=== PATIENT | female | born 1950 | race Caucasian/White ===

== ENCOUNTER → 2016-04-24 | Outpatient (CLI) | payer OTHER ==
[~2016-04-24] MED LIST: ENDOCET1 TAB PO; HYDROMORPHONE HC2 MG PO; LORAZEPAM0.5 MG PO; SPIRIVA18 MCG IN; SPIRIVA18 MCG INH; SYMBICORT1 AE1 IN; WARFARIN SODIUM5 MG PO; XARELTO10 MG PO
--- NOTE | 2016-04-24 13:20 | DIAGNOSTIC IMAGING REPORT ---
PROCEDURE: CT HEAD WITHOUT CONTRAST INDICATION: ACUTE RECURRENT SINUSITIS, headaches TECHNIQUE: Axial CT images were acquired through the head. Coronal and sagittal reformations were created. COMPARISON: None. FINDINGS: No intracranial hemorrhage or extraaxial fluid collections. Ventricles are normal in size, shape and position. There is no mass, mass effect or midline shift. The mahmood-white matter differentiation is normal. There is no edema. Small areas of scattered patchy hypodensity in the periventricular white matter, left greater than right. The right mastoid cavity is diminutive and mainly fluid filled with trabecular pattern normally preserved. There is dependent fluid partially opacified left mastoid cavity. Fluid present in both middle ear spaces. Fluid/mucus dependently in the sphenoid sinuses, partial opacification of mainly left-sided ethmoid air cells, and mucosal thickening dependently in the left frontal sinus. Dependent fluid and mucus in the left maxillary sinus. Small mucous retention cyst or polyp at the base of the right maxillary sinus. There is extensive soft tissue hypertrophy of the adenoid pad/posterior nasopharyngeal region as well as a permeative appearance and cortical destruction involving the clivus. The rest of the osseous structures appear normal. Extracranial soft tissues are normal without adenopathy visible. IMPRESSION: 1. No CT evidence of acute intracranial process. 2. Minor, nonspecific deep white matter changes, statistically likely microvascular/age-related. 3. Abnormal soft tissue mass in the posterior nasopharynx as well as adjacent osseous destructive process. This mass is likely obstructive to eustachian tubes bilaterally resulting in bilateral mastoid opacification. 3. Partially occlusive sinus disease involving the left frontal, bilateral sphenoid, maxillary, and mainly left-sided ethmoid air cells. 4. Otolaryngology consult is recommended for posterior nasopharyngeal mass. Further imaging with contrast enhanced MRI recommended. All CT scans at this facility use dose modulation, iterative reconstruction, and/or weight-based dosing when appropriate to reduce radiation dose to as low as reasonably achievable.
== END ==
LOC: CT SRH 12:29
DX: J34.89 Other specified disorders of nose and nasal sinuses (principal)

== ENCOUNTER 2016-05-01 18:58 | Observation (INO) | payer OTHER ==
[~2016-05-01] VITALS: Ht 157.5 cm; Wt 70.2 kg
--- NOTE | 2016-05-01 21:22 | DIAGNOSTIC IMAGING REPORT ---
PROCEDURE: CTA THORAX WITH CONTRAST INDICATION: Shortness of breath TECHNIQUE: 80 ml of Isovue 370 was injected intravenously and axial images were obtained of the entire thorax with 3D sagittal and coronal MIP reconstructions. COMPARISON: CT chest 08/15/2014 FINDINGS: Small pulmonary emboli to the branches of the both lower lobes. Mild emphysema. Mild right upper lobe and bibasilar atelectasis. Previously noted pulmonary nodules have resolved. Calcified left lower lobe granuloma. No adenopathy or effusion. 1.2 cm right thyroid lobe nodule. No aortic dissection or aneurysm. Heart size is normal. Hiatal hernia. Mild degenerative changes of the spine. IMPRESSION: 1. Small pulmonary emboli to peripheral branches of both lower lobes 2. Emphysema 3. Old granulomatous disease 4. Results discussed with Clari Dumont
--- NOTE | 2016-05-01 21:36 | ED CLINICAL REPORT ---
Clinical Report - Physicians/Mid Levels [facility] [address] [place] [address] 05/01/2016 18:58 Patient: CHERYL TENORIO Time Seen: 1929; initial patient contact, initial documentation, patient care assumed. Arrived- By private vehicle. Historian- patient and daughter. HISTORY OF PRESENT ILLNESS Chief Complaint: DYSPNEA and HISTORY OF CHRONIC OBSTRUCTIVE PULMONARY DISEASE. This started about 6 - 7 months ago and is still present and worsening. (worse 1 weeks ago). The dyspnea is described as moderate and is worsened by walking and exertion. The patient has had a cough, wheezing, dyspnea on exertion and dizziness. No sputum production, fever, sweating episodes or chest pain or discomfort. No calf pain, foot swelling, anxiety, tingling or numbness. No palpitations. Similar symptoms previously: Chronically. ( has had copd for years, back in august, started feeling bad, ct chest done and was told she had 3 nodules in her lungs at that time, but nothing was done about it, states she went to her pcp, dominik several times, and was told different, things, she had flu, she had pneumonia, but wasn't feeling better, about a week ago, head ct done here, was told there was a mass in her nose/sinus area, referred to oncologist, went there today, biopsy done in nose, and ct of chest done, on way home from office, got phone call to go to nearest er for possible pe). Recent medical care: The patient was seen recently in the office. ( as above). REVIEW OF SYSTEMS The patient has had muscle aches. No sore throat, nasal discharge or sinus drainage. All systems otherwise negative, except as recorded above. PAST HISTORY See nurses notes. PROBLEMS: COPD - Chronic Obstructive Pulmonary Disease. Cancer. --19:18 Mehul Wheeler R.N. SOCIAL HISTORY Former smoker. No alcohol use or drug use. No recent travel. Is a local resident. FAMILY HISTORY Negative. ADDITIONAL NOTES The nursing notes have been reviewed with agreement regarding the chief complaint, HPI, ROS, PMH and patient medications and allergies. PHYSICAL EXAM Vital Signs: 05/01/2016 19:08 BP: 150/97. HR: 108. RR: 20. O2 saturation: 97%. Temp: 97.5 F. Have been reviewed as abnormal and appear to be correct. Hypertensive. Tachycardic. Respiratory rate normal. Temperature normal. Oxygen saturation normal. Appearance: Alert. No acute distress. Eyes: Pupils equal, round and reactive to light. Eyes normal inspection. ENT: (dried nasal blood in nares). Neck: Normal inspection. No jugular venous distention. Neck supple. CVS: Normal heart rate and rhythm. Heart sounds normal. Pulses normal. Respiratory: No respiratory distress. Breath sounds normal. Back: Normal inspection. Skin: Skin warm and dry. Normal skin color. No rash. Normal skin turgor. Extremities: Extremities exhibit normal ROM. No lower extremity edema. Neuro: Oriented X 3. No motor deficit. No sensory deficit. LABS, X-RAYS, AND EKG Chest CT: . (IMPRESSION: 1. Small pulmonary emboli to peripheral branches of both lower lobes 2. Emphysema 3. Old granulomatous disease 4. Results discussed with Clari Dumont Electronically Final signed by:Noel Mack MD 05/01/2016 9:21:42 PM). The study was interpreted by the radiologist and discussed with the radiologist. Laboratory Tests: CBC w Diff: (ZION: 05/01/2016 20:01) ( MsgRcvd 05/01/2016 20:12) Final results Test Result Flag Units (Reference) WHITE BLOOD COUNT 10.1 K/uL (4.5-11.5) RED BLOOD COUNT 4.88 M/uL (4.00-5.20) HEMOGLOBIN 14.9 gm/dL (12.0-16.0) HEMATOCRIT 45.2 % (36.0-46.0) MEAN CELL VOLUME 93 fL (80-100) MEAN CORPUSCULAR HGB 31 pg (26-34) MEAN CORPUSCULAR HGB CONC 33 g/dL (31-37) RED CELL DISTRIBUTION WIDTH 13.4 % (11.6-14.8) PLATELET COUNT 406 H K/uL (150-400) NEUTROPHIL % 72.5 % (50-75) LYMPH % 18.2 L % (25-40) MONO % 6.3 % (3-14) EOSINOPHIL % 2.6 % (0-4) BASOPHIL % 0.4 % (0-2) [id number]: (ZION: 05/01/2016 20:01) ( MsgRcvd 05/01/2016 20:42) Final results Test Result Flag Units (Reference) D-DIMER QUANTITATIVE 0.96 H ug/mLFEU (0.27-0.52) The primary value of this quantitative assay relates toits negative predictive value (i.e. exclusion) of pulmonaryembolism/deep vein thrombosis/DIC.Elevated levels of d-dimer may also occur with:, age, cancer, inflammation, liver disease,post-op, infection, hematoma, coronary disease, peripheralarteriopathy, bleeding disorders and thrombolytic treatment.Results should be correlated with other clinical andradiological data.Testing Methodology: Latex Immunoassay CMP: (ZION: 05/01/2016 20:01) ( MsgRcvd 05/01/2016 20:29) Final results Test Result Flag Units (Reference) GLUCOSE 143 H mg/dL (70-110) BUN 9 mg/dL (7-18) CREATININE 0.8 mg/dL (0.6-1.3) Estimated GFR >60 mL/min Estimated GFR- >60 mL/min Note: Persistent reduction over 3 months in eGFR<60 mL/min/1.73 m2 defines CKD. Patients with eGFR values>=60 mL/min/1.73 m2 may also have CKD if evidence ofpersistent proteinuria. Additional information may be foundat www.kidney.org. SODIUM 137 mmol/L (136-145) POTASSIUM 3.9 mmol/L (3.5-5.1) CHLORIDE 98 mmol/L (98-107) CARBON DIOXIDE 29 mmol/L (21-32) CALCIUM 10.1 mg/dL (8.5-10.1) TOTAL PROTEIN 7.5 g/dL (6.4-8.2) ALBUMIN 3.7 g/dL (3.3-5.0) BILIRUBIN, TOTAL 0.5 mg/dL (0.0-1.0) ALKALINE PHOSPHATASE 100 U/L (46-116) AST (SGOT) 13 L U/L (15-37) ALT (SGPT) 19 U/L (12-78) . PROGRESS AND PROCEDURES Course of Care: ct results from reviewed, and discussion with pt re tx plan and concerns of metastatic ca vs pe radiology questioning reason for cta, since pt just had one done 20:30 05/01/16. now Dr. Pablo calling in reference to another ct chest being done and why, pt case discussed with him and ct report read to him, agreed to cta chest. Discussed case with on-call health care provider, (call placed [phone]). Reviewed test results. Agreed upon treatment plan and decision to admit. Health care provider will see patient in hospital. Patient counseled in person regarding the patient's stable condition, test results and diagnosis. 2124. Differential Diagnosis: Other possible considerations: pe, mets ca, copd exac, pneumonia. Above considerations are based on history, physical exam, laboratory data and other information. Differential diagnosis was discussed with patient and patient's family. Disposition: Admitted to Acute Care. 21:34. CLINICAL IMPRESSION Acute pulmonary embolism. No acute cor pulmonale, hypotension or respiratory failure. (Electronically signed by Clari Dumont A.R.N.P. 05/01/2016 22:29)
--- NOTE | 2016-05-01 21:36 | ED ORDER SUMMARY ---
..... Patient: CHERYL TENORIO OrderSheet [facility] VisitID: [id number] [address] [place] [address] 65y, F Registration Date/Time: 05/01/2016 ORDER SHEET Weight: 70.3 kg (stated) Allergies: Biaxin GENERAL ORDERS: CTA Thorax w Cont (No) (pending) Urgent (20:07 05/01/2016 HBivens A.R.N.P.) (Ack 20:09 AMcQuoid ER Tech1) (20:50 TLewis R.N.) CBC w Diff Urgent (20:07 05/01/2016 HBivens A.R.N.P.) (Ack 20:09 AMcQuoid ER Tech1) (20:11 AMcQuoid ER Tech1) CMP Urgent (20:07 05/01/2016 HBivens A.R.N.P.) (Ack 20:09 AMcQuoid ER Tech1) (20:11 AMcQuoid ER Tech1) D-Dimer Urgent (20:27 05/01/2016 HBivens A.R.N.P.) (20:35 AMcQuoid ER Tech1) PT with INR Urgent (21:29 05/01/2016 HBivens A.R.N.P.) (Ack 21:30 AMcQuoid ER Tech1) (21:36 TLewis R.N.) PTT Urgent (21:29 05/01/2016 HBivens A.R.N.P.) (Ack 21:30 AMcQuoid ER Tech1) (21:36 TLewis R.N.) MEDICATION ORDERS: Lovenox Subcut 70mg (HIGH ALERT MEDICATION, NOW) (21:35 05/01/2016 HBivens A.R.N.P.) (21:44 TLewis R.N.) IV FLUIDS: IV Saline Lock (20:07 05/01/2016 HBivens A.R.N.P.) (20:19 TLewis R.N.) ORDER SHEET NOTES: [Electronically signed by Mehul Wheeler R.N. (22:17 05/01/2016)] [Electronically signed by Clari DumontR.N.P. (22:29 05/01/2016)] [Electronically locked/signed by Mehul Wheeler R.N. (22:17 05/01/2016)]
--- NOTE | 2016-05-01 21:36 | ED NURSING NOTES ---
Clinical Report - Nurses [facility] [address] [place] [address] 05/01/2016 18:58 Patient: CHERYL TENORIO TRIAGE Triage time 19:08. Acuity: LEVEL 3. --19:19 Mehul Wheeler R.N. 19:08 05/01/16. BP: 150/97. HR: 108. RR: 20. O2 saturation: 97%. Temp: 97.5 F. Pain level now 5/10. --19:19 Mehul Wheeler R.N. Chief Complaint: (sob). --22:17 Mehul Wheeler R.N. Weight: 70.3 kg stated. Height/Length: 62 inches Per Patient. BMI: 28.4. --19:18 Mehul Wheeler R.N. Medications Spiriva HandiHaler Inhalation. --19:16 Mehul Wheeler R.N. LORazepam Oral 0.5 mg, PRN. --19:16 Mehul Wheeler R.N. Oxycodone-Acetaminophen Oral 5/325 mg, at bedtime. --19:17 Mehul Wheeler R.N. Medication/allergy information source: the patient. --19:19 Mehul Wheeler R.N. Allergies Biaxin. --19:17 Mehul Wheeler R.N. History Arrived by private vehicle. Historian: patient. Accompanied by family. ( Oncologist Dr. Joseph [phone] Radiologist [phone]). This started today. ( Had a CTA that was abnormal and was told to come to the nearest ER. Pt had 3 biopsies of the nose at the . Pt is now having a headache due to the procedures. Pt has a nose mass. Pt is feeling bad for the past few months. Pt is feeling sob, due to COPD.). She has had a nasal discharge, fatigue and sinus pain. Reports muscle aches. Treatment STEWARD/STEWARDESS SMOKE ROOM: None. PAST MEDICAL HX: Immunizations: up-to-date. SOCIAL HX: Former smoker. No alcohol use or drug use. --19:19 Mehul Wheeler R.N. PROBLEMS: COPD - Chronic Obstructive Pulmonary Disease. Cancer. --19:18 Mehul Wheeler R.N. Interventions ID band on patient. To treatment room. --19:19 Mehul Wheeler R.N. PHYSICAL ASSESSMENT GENERAL / NEURO / PSYCH: Alert. Oriented X 4. Appears in no acute distress. HEENT: Pupils equal, round and reactive to light. Ears within normal limits. Nares within normal limits. Mouth within normal limits upon inspection. Pharynx within normal limits. Voice within normal limits. Mucous membranes are pink. RESPIRATORY: Mild respiratory distress. The patient can speak in full sentences. Decreased breath sounds bilaterally. ( nasal congestion). CVS: Normal sinus rhythm noted. Capillary refill less than 2 seconds. SKIN: Skin is warm and dry. Normal skin turgor. --19:20 Mehul Wheeler R.N. NURSING PROGRESS NOTES Pulse oximeter and NIBP monitor placed on patient. Patient gowned. --19:20 Mehul Wheeler R.N. 19:35 Records requested from [facility]. --19:35 McQuoid, Cely, ER Tech1 ( Clari mid level was in the room explaining the Rad report by .). --20:02 Mehul Wheeler R.N. 20:02 05/01/2016 Site #1 started via IV in the right antecubital space with an 20g angiocath, with aseptic technique and good blood return; one attempt. Blood drawn: rainbow set. Labeled in the presence of the patient and sent to the lab. Saline lock flushed with 10 mL saline. --20:02 Mehul Wheeler R.N. 20:03 05/01/16. BP: 131/78. HR: 101. RR: 17. O2 saturation: 96%. --20:03 Mehul Wheeler R.N. 21:26 05/01/16. BP: 118/76. HR: 97. RR: 15. O2 saturation: 98%. Pain level now 0/10. --21:27 Mehul Wheeler R.N. ( Pt is laying in bed with no signs of distress with daughter at beside.). --21:32 Mehul Wheeler R.N. 21:44 05/01/2016 Lovenox (Enoxaparin Sodium) Subcutaneous 70 mg given. Given in the right abdomen. Allergies verified and confirmed 5 rights. --21:44 Mehul Wheeler R.N. ( Report was given to Emely RO. Pt will be going to room 209B. Dr Lopez is present in the room talking to the pt.). --22:06 Mehul Wheeler R.N. DISPOSITION / DISCHARGE Departure time: 22:16. Condition at departure: improved. Admitted to Acute Care (22:17). ( Pt is being transported by [employer] to room 209B. Pt showed no signs of distress or sob. Pt was alert and oriented x 4 with daughter walking up with the pt.). --22:17 Mehul Wheeler R.N. Locked/Released at 05/01/2016 22:17 by Mehul Wheeler R.N.
--- NOTE | 2016-05-01 21:36 | ED ORDER SUMMARY ---
..... Patient: CHERYL TENORIO OrderSheet [facility] VisitID: [id number] [address] [place] [address] 65y, F Registration Date/Time: 05/01/2016 ORDER SHEET Weight: 70.3 kg (stated) Allergies: Biaxin GENERAL ORDERS: CTA Thorax w Cont (No) (pending) Urgent (20:07 05/01/2016 HBivens A.R.N.P.) (Ack 20:09 AMcQuoid ER Tech1) (20:50 TLewis R.N.) CBC w Diff Urgent (20:07 05/01/2016 HBivens A.R.N.P.) (Ack 20:09 AMcQuoid ER Tech1) (20:11 AMcQuoid ER Tech1) CMP Urgent (20:07 05/01/2016 HBivens A.R.N.P.) (Ack 20:09 AMcQuoid ER Tech1) (20:11 AMcQuoid ER Tech1) D-Dimer Urgent (20:27 05/01/2016 HBivens A.R.N.P.) (20:35 AMcQuoid ER Tech1) PT with INR Urgent (21:29 05/01/2016 HBivens A.R.N.P.) (Ack 21:30 AMcQuoid ER Tech1) (21:36 TLewis R.N.) PTT Urgent (21:29 05/01/2016 HBivens A.R.N.P.) (Ack 21:30 AMcQuoid ER Tech1) (21:36 TLewis R.N.) MEDICATION ORDERS: Lovenox Subcut 70mg (HIGH ALERT MEDICATION, NOW) (21:35 05/01/2016 HBivens A.R.N.P.) (21:44 TLewis R.N.) IV FLUIDS: IV Saline Lock (20:07 05/01/2016 HBivens A.R.N.P.) (20:19 TLewis R.N.) ORDER SHEET NOTES: [Electronically signed by Mehul Wheeler R.N. (22:17 05/01/2016)] [Electronically signed by Clari DumnotR.N.P. (22:29 05/01/2016)] [Electronically locked/signed by Mehul Wheeler R.N. (22:17 05/01/2016)]
--- NOTE | 2016-05-01 21:36 | ED NURSING NOTES ---
Clinical Report - Nurses [facility] [address] [place] [address] 05/01/2016 18:58 Patient: CHERYL TENORIO TRIAGE Triage time 19:08. Acuity: LEVEL 3. --19:19 Mehul Wheeler R.N. 19:08 05/01/16. BP: 150/97. HR: 108. RR: 20. O2 saturation: 97%. Temp: 97.5 F. Pain level now 5/10. --19:19 Mehul Wheeler R.N. Chief Complaint: (sob). --22:17 Mehul Wheeler R.N. Weight: 70.3 kg stated. Height/Length: 62 inches Per Patient. BMI: 28.4. --19:18 Mehul Wheeler R.N. Medications Spiriva HandiHaler Inhalation. --19:16 Mehul Wheeler R.N. LORazepam Oral 0.5 mg, PRN. --19:16 Mehul Wheeler R.N. Oxycodone-Acetaminophen Oral 5/325 mg, at bedtime. --19:17 Mehul Wheeler R.N. Medication/allergy information source: the patient. --19:19 Mehul Wheeler R.N. Allergies Biaxin. --19:17 Mehul Wheeler R.N. History Arrived by private vehicle. Historian: patient. Accompanied by family. ( Oncologist Dr. Joseph [phone] Radiologist [phone]). This started today. ( Had a CTA that was abnormal and was told to come to the nearest ER. Pt had 3 biopsies of the nose at the . Pt is now having a headache due to the procedures. Pt has a nose mass. Pt is feeling bad for the past few months. Pt is feeling sob, due to COPD.). She has had a nasal discharge, fatigue and sinus pain. Reports muscle aches. Treatment HOME OFFICE REPRESENTATIVE: None. PAST MEDICAL HX: Immunizations: up-to-date. SOCIAL HX: Former smoker. No alcohol use or drug use. --19:19 Mehul Wheeler R.N. PROBLEMS: COPD - Chronic Obstructive Pulmonary Disease. Cancer. --19:18 Mehul Wheeler R.N. Interventions ID band on patient. To treatment room. --19:19 Mehul Wheeler R.N. PHYSICAL ASSESSMENT GENERAL / NEURO / PSYCH: Alert. Oriented X 4. Appears in no acute distress. HEENT: Pupils equal, round and reactive to light. Ears within normal limits. Nares within normal limits. Mouth within normal limits upon inspection. Pharynx within normal limits. Voice within normal limits. Mucous membranes are pink. RESPIRATORY: Mild respiratory distress. The patient can speak in full sentences. Decreased breath sounds bilaterally. ( nasal congestion). CVS: Normal sinus rhythm noted. Capillary refill less than 2 seconds. SKIN: Skin is warm and dry. Normal skin turgor. --19:20 Mehul Wheeler R.N. NURSING PROGRESS NOTES Pulse oximeter and NIBP monitor placed on patient. Patient gowned. --19:20 Mehul Wheeler R.N. 19:35 Records requested from [facility]. --19:35 McQuoid, Cely, ER Tech1 ( Clari mid level was in the room explaining the Rad report by .). --20:02 Mehul Wheeler R.N. 20:02 05/01/2016 Site #1 started via IV in the right antecubital space with an 20g angiocath, with aseptic technique and good blood return; one attempt. Blood drawn: rainbow set. Labeled in the presence of the patient and sent to the lab. Saline lock flushed with 10 mL saline. --20:02 Mehul Wheeler R.N. 20:03 05/01/16. BP: 131/78. HR: 101. RR: 17. O2 saturation: 96%. --20:03 Mehul Wheeler R.N. 21:26 05/01/16. BP: 118/76. HR: 97. RR: 15. O2 saturation: 98%. Pain level now 0/10. --21:27 Mehul Wheeler R.N. ( Pt is laying in bed with no signs of distress with daughter at beside.). --21:32 Mehul Wheeler R.N. 21:44 05/01/2016 Lovenox (Enoxaparin Sodium) Subcutaneous 70 mg given. Given in the right abdomen. Allergies verified and confirmed 5 rights. --21:44 Mehul Wheeler R.N. ( Report was given to Emely RO. Pt will be going to room 209B. Dr Lopez is present in the room talking to the pt.). --22:06 Mehul Wheeler R.N. DISPOSITION / DISCHARGE Departure time: 22:16. Condition at departure: improved. Admitted to Acute Care (22:17). ( Pt is being transported by [employer] to room 209B. Pt showed no signs of distress or sob. Pt was alert and oriented x 4 with daughter walking up with the pt.). --22:17 Mehul Wheeler R.N. Locked/Released at 05/01/2016 22:17 by Mehul Wheeler R.N.
--- NOTE | 2016-05-01 22:29 | ED DISCHARGE INSTRUCTIONS ---
Patient: CHERYL TENORIO General Instructions [facility] VisitID: [id number] [address] [place] [address] 65y, F Registration Date/Time: 05/01/2016 Acute pulmonary embolism. No acute cor pulmonale, hypotension or respiratory failure. (Electronically signed by Clari Dumont A.R.N.P. 05/01/2016 22:29)
--- NOTE | 2016-05-01 22:29 | ED MAR SUMMARY ---
..... Medication Administration Record [facility] [address] [place] [address] Patient: CHERYL TENORIO Visit ID: [id number] 65y, F Weight: 70.3 kg Height/Length: 62 in BMI: 28.4 ALLERGIES: Biaxin Given 21:44 05/01/2016 Mehul Wheeler R.N. Medication Administered: LOVENOX [SUBCUTANEOUS] (ENOXAPARIN SODIUM), Dose: 70 mg Subcutaneous. Medication Ordered: Lovenox Subcut 70mg (HIGH ALERT MEDICATION, NOW).
--- NOTE | 2016-05-01 22:29 | ED DISCHARGE INSTRUCTIONS ---
Patient: CHERYL TENORIO General Instructions [facility] VisitID: [id number] [address] [place] [address] 65y, F Registration Date/Time: 05/01/2016 Acute pulmonary embolism. No acute cor pulmonale, hypotension or respiratory failure. (Electronically signed by Clari Dumont A.R.N.P. 05/01/2016 22:29)
--- NOTE | 2016-05-01 22:29 | ED MED RECONCILIATION SUMMARY ---
Patient: CHERYL TENORIO Medication Reconciliation Report [facility] VisitID: [id number] [address] [place] [address] 65y, F Registration Date/Time: 05/01/2016 Weight: 70.3 kg Height/Length: 62 in. BMI: 28.4 ALLERGIES: Biaxin The patient's Home Medications are listed below: THE FOLLOWING MEDICATIONS NEED TO BE RECONCILED: LORazepam Oral 0.5 mg, PRN Oxycodone-Acetaminophen Oral 5/325 mg, at bedtime Spiriva HandiHaler Inhalation The source(s) of the original Home Medication information: patient The following Medications were given to the patient in the Emergency Department: Lovenox [Subcutaneous] Subcutaneous 70 mg, administered: 05/01/2016 9:44:00 PM The following Medications were prescribed to the patient: None.
--- NOTE | 2016-05-01 22:29 | ED MED RECONCILIATION SUMMARY ---
Patient: CHERYL TENORIO Medication Reconciliation Report [facility] VisitID: [id number] [address] [place] [address] 65y, F Registration Date/Time: 05/01/2016 Weight: 70.3 kg Height/Length: 62 in. BMI: 28.4 ALLERGIES: Biaxin The patient's Home Medications are listed below: THE FOLLOWING MEDICATIONS NEED TO BE RECONCILED: LORazepam Oral 0.5 mg, PRN Oxycodone-Acetaminophen Oral 5/325 mg, at bedtime Spiriva HandiHaler Inhalation The source(s) of the original Home Medication information: patient The following Medications were given to the patient in the Emergency Department: Lovenox [Subcutaneous] Subcutaneous 70 mg, administered: 05/01/2016 9:44:00 PM The following Medications were prescribed to the patient: None.
--- NOTE | 2016-05-01 22:29 | ED MAR SUMMARY ---
..... Medication Administration Record [facility] [address] [place] [address] Patient: CHERYL TENORIO Visit ID: [id number] 65y, F Weight: 70.3 kg Height/Length: 62 in BMI: 28.4 ALLERGIES: Biaxin Given 21:44 05/01/2016 Mehul Wheeler R.N. Medication Administered: LOVENOX [SUBCUTANEOUS] (ENOXAPARIN SODIUM), Dose: 70 mg Subcutaneous. Medication Ordered: Lovenox Subcut 70mg (HIGH ALERT MEDICATION, NOW).
[2016-05-01 22:41] VITALS: BP 144/78
[2016-05-01] MEDS ORDERED: LORAZEPAM0.5 MG PO ×2 (22:50→22:51)
[2016-05-01] MEDS ORDERED: ENDOCET1 TAB PO (22:53)
[2016-05-01] MEDS ORDERED: SPIRIVA18 MCG INH (22:57)
[2016-05-01] MEDS ORDERED: SYMBICORT1 AE1 IN (22:59)
--- NOTE | 2016-05-01 23:30 | NUR ---
NEW ADMIT FROM ED @ 2223. PT BROUGHT UP VIA STRETCHER BY FACILITY TECH. NO DISTRESS NOTED. PT'S FAMILY PRESENT. PT ABLE TO STAND AND WALK OVER TO BED, PT TOLERATED WELL. MD CALLED @ 2230 DUE TO PATIENTS REQUEST FOR PAIN MEDICATION AND PT WANTED TO EAT. RN TALKED TO MD, AND INFORMED MD OF PATIENTS PAIN LEVEL, AND REQUEST TO EAT. MD STATED THAT HE WAS PLACING ORDERS IN [facility]PO[place], AND THAT THE PATIENT COULD HAVE A REGULAR DIET. PT GIVEN HS SNACK OF SOUP AND 1/2 SANDWICH. PT PLACED ON TELE ONCE ON UNIT. VSS. IV INTACT IN THE RAC, IV FLUIDS STARTED PER MD ORDER. PT EDUCATED AMBULATORY SERVICES REPRESENTATIVE LIGHT, BED CONTROLS, PLAN OF CARE, MEDICATIONS, AND S/S TO REPORT. FAMILY INFORMED OF VISITING HOURS. BED IN LOWEST POSITION, CALL LIGHT IN REACH ,WCTM.
--- NOTE | 2016-05-01 23:45 | NUR ---
CALLED AT 2343 VIA PAGER, CALLED BACK AT 2345. RN CLARIFIED ORDER FOR TELE, AND PM LOVENOX ORDER. MD INFORMED THAT PATIENT RECEIVED LOVENOX 70 MG IN THE ED @ 2143. STATED TO START LOVENOX IN AM, AND TO PLACE PT ON TELE, WITH TELE, PROTOCOL. ORDERS READ BACK, WRITTEN IN CHART, WCTM.
--- NOTE | 2016-05-01 23:45 | HISTORY AND PHYSICAL ---
ADMITTED: 05/01/2016 CHIEF COMPLAINT: 1. Blood clots in lungs HISTORY OF PRESENT ILLNESS: A 66-year-old female presents to [facility] after being called by the [facility] with abnormal CT result. The patient had been referred to the for evaluation of a nasopharyngeal mass with a preceding 3-month history of increasing headaches, hearing loss and congestion with facial pressure. She was referred by Dr. Diaz, her primary physician, to Dr. Rusty Duncan, who referred her to the , where she was seen on the day of admission and a biopsy performed. Additionally, a CT scan of the head , neck and chest was obtained. The patient was called on her way home, saying the CT was abnormal and they show blood clots. She was advised to present to the emergency department for admission and treatment of blood clots. The patient declined to return to the and instead presented to [facility]. The patient reports marked headache and facial pain, for which she takes Percocet 1/2-1 tablet every 4 hours for pain. She denied shortness of breath or chest pain. MEDICAL/SURGICAL HISTORY: Past medical history: Remarkable for COPD, anxiety, and recent ENT symptoms as noted above. Surgeries: None, except a biopsy performed today. MEDICATIONS: 1. Spiriva HandiHaler 1 capsule inhaled daily. 2. Lorazepam 0.5 mg p.o. t.i.d. for anxiety. 3. Percocet 5/325 one-half to 1 q.4 hours p.r.n. pain. 4. Symbicort 2 puffs b.i.d. 5. Albuterol MDI 2 puffs q.4 hours p.r.n. (rarely used). 6. The patient also reports a recent history of prednisone use x10 days in March. ALLERGIES: 1. BIAXIN. SOCIAL HISTORY: female, lives alone in [place]. Daughter lives in [place], another daughter lives in [place]. Grandson lives in [place]. Habits: Smoking: None; quit in 2008. Alcohol use: None. Drug use: None. FAMILY HISTORY: REVIEW OF SYSTEMS: General: The patient is uncertain if she has had fever. She denies chills. She has had recent sweats and malaise. ENT: As noted above. Respiratory: Denies cough. She does admit to shortness of breath with exertion and wheezing, controlled with medications as noted. Positive smoking history as noted above. Cardiac: Denies chest pain, palpitations, or paroxysmal nocturnal dyspnea. Gastrointestinal: Denies nausea, vomiting, diarrhea, constipation, bright red blood per rectum or melena. Genitourinary: Denies dysuria, pyuria or frequency. Musculoskeletal: Denies joint swelling, joint pain or gout. PHYSICAL EXAMINATION: VITAL SIGNS: Blood pressure 150/97, heart rate 108, respirations 20, SaO2 97%, temperature 97.5. HEENT: Exam reveals dried blood in nares and, therefore, incompletely visualized. Tympanic membranes are clear. Throat is clear. Pupils equal, round, reactive to light. Voice is nasal in character. NECK: Supple without adenopathy or thyromegaly. CHEST: Clear to auscultation and percussion. HEART: Regular rate and rhythm without murmur. ABDOMEN: Positive bowel sounds. Soft, nontender, without hepatosplenomegaly or masses. BACK: Straight without CVA tenderness. EXTREMITIES: Without cyanosis, clubbing or edema. There is no calf tenderness. GENITAL: Deferred. RECTAL: Deferred. BREASTS: Deferred. LAB/IMAGING: Laboratories: WBC 10.1, hemoglobin 14.9, hematocrit 45.2, platelets 406,000. Glucose 143, BUN 9, creatinine 0.8, sodium 137, potassium 3.9, chloride 98, bicarbonate 29. Total bilirubin 0.5, alk phos 100, AST 13, ALT 19. D-dimer 0.96. INR 1.0. Imaging: CT angiogram of the chest reveals small pulmonary emboli to peripheral branches of both lower lobes, emphysema, old granulomatous disease. There is also 1.2 cm right thyroid nodule and mild emphysema seen. IMPRESSION: 1. Pulmonary emboli. 2. 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 Biopsy pending at [facility]. 3. Chronic obstructive pulmonary disease. 4. Anxiety. 5. Thyroid nodule. PLAN: Admit to [facility]. The patient is started on subcutaneous Lovenox and oral Coumadin with plan for transition to oral medications. Dr. Diaz will be notified in the a.m.
[2016-05-02 01:49] VITALS: BP 118/87
[2016-05-02 07:20] VITALS: BP 137/87
--- NOTE | 2016-05-02 09:35 | Progress Note ---
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 Denies: Fever, Chills, Malaise. Eyes Denies: Pain, Vision Change, Conjunctival Inflammation, Eyelid Inflammation, Redness. ENT Ear Pain, Nose Pain, Mouth Swelling (FACIAL SWELLING), Other (BILAT SINUS PAIN). Denies: Mouth Pain, Throat Pain. Respiratory Denies: Cough, Dry, SOB w/exertion, Wheezing, Hemoptysis, Pleuritic Pain, Sputum. Cardiovascular Denies: Chest Pain, Palpitations, Orthopnea, PND, Edema, Light-headedness. Gastrointestinal Denies: Nausea, Vomiting, Abdominal Pain, Diarrhea, Constipation, Melena, Hematochezia. Genitourinary Denies: Dysuria, Frequency, Incontinence, Hematuria, Retention. Musculoskeletal Denies: Neck Pain, Shoulder Pain, Arm Pain, Back Pain, Hand Pain, Leg Pain, Foot Pain. Skin Denies: Rash, Lesions, Jaundice, Bruising. Neurological Other (CHRONIC TREMOR). Denies: Weakness, Numbness, Incoordination, Change in speech, Confusion, Seizures. Physical Exam Vital Signs / I&Os Vital Signs Date Time Temp Pulse Resp B/P Pulse O2 O2 Flow FiO2 Ox Delivery Rate 05/02 0720 96.8 86 18 137/87 95 0.0 05/02 0149 98.2 97 18 118/87 96 Room Air 05/01 2316 Room Air 05/01 2241 98.2 98 18 144/78 97 Room Air I&O 05/01 0800 05/01 1600 05/02 0000 Intake Total Output Total Balance General Appearance Alert, Oriented X3, Cooperative, No acute distress HEENT Atraumatic, PERRLA, EOMI, Moist mucous membranes, PLUGGED NOSTRILS TO AIR Lungs Normal exam, Clear to auscultation, DISTANT BS Neck Supple, No JVD, No masses, No lymphadenopathy Cardiovascular Normal exam, Regular rate and rhythm, No murmurs, gallops, rubs Abdomen Normal exam, Soft, No tenderness Extremities No edema, Strength = upper ext's, Strength = lower ext's Skin No Rashes, No Breakdown Neurological Normal exam, Normal gait, Normal speech, No lateralizing signs, NASAL SPEECH Psych/Mental Status Mental status normal, Mood normal LAB Results Laboratory Tests 05/01 Chemistry Plasma Sodium (136 - 145 mmol/L) 137 143 Plasma Potassium (3.5 - 5.1 mmol/L) 3.9 4.0 Plasma Chloride (98 - 107 mmol/L) 98 104 CO2 (Enzymatic) (21 - 32 mmol/L) 29 26 BUN (7 - 18 mg/dL) 9 9 Creatinine (0.6 - 1.3 mg/dL) 0.8 0.8 Est GFR ( Amer) (mL/min) >60 >60 Est GFR (Non-Af Amer) (mL/min) >60 >60 Glucose (70 - 110 mg/dL) 143 130 Plasma Calcium (8.5 - 10.1 mg/dL) 10.1 10.3 Plasma Magnesium (1.8 - 2.4 mg/dL) 2.1 Total Bilirubin (0.0 - 1.0 mg/dL) 0.5 0.5 AST (15 - 37 U/L) 13 17 ALT (12 - 78 U/L) 19 16 Alkaline Phosphatase (46 - 116 U/L) 100 96 Total Protein (6.4 - 8.2 g/dL) 7.5 6.9 Albumin (3.3 - 5.0 g/dL) 3.7 3.4 Coagulation INR (0.8 - 1.2) 1.0 1.0 APTT (24 - 34 SECONDS) 32 D-Dimer, Quantitative (0.27 - 0.52 ug/mLFEU) 0.96 Hematology WBC (4.5 - 11.5 K/uL) 10.1 9.8 RBC (4.00 - 5.20 M/uL) 4.88 4.74 Hgb (12.0 - 16.0 gm/dL) 14.9 14.5 Hct (36.0 - 46.0 %) 45.2 44.3 MCV (80 - 100 fL) 93 93 MCH (26 - 34 pg) 31 31 RDW (11.6 - 14.8 %) 13.4 13.5 Neut % (Auto) (50 - 75 %) 72.5 60.7 Lymph % (Auto) (25 - 40 %) 18.2 26.9 [place] % (Auto) (3 - 14 %) 6.3 8.7 Eos % (Auto) (0 - 4 %) 2.6 2.9 Baso % (Auto) (0 - 2 %) 0.4 0.8 Plt Count, EDTA (150 - 400 K/uL) 406 352 PUBS MCHC (31 - 37 g/dL) 33 33 Assessment and Plan Problem List 1. Pulmonary emboli Plan WE WILL CHANGE TO XARELTO 15 MG 2X/DAY AND BRIDGE TO WARFARIN AT HOME OVER WEEKEND 2. Nasopharyngeal mass Plan BX PENDING 3. COPD (chronic obstructive pulmonary disease) Plan W/O HYPOXIA 4. Anxiety Plan MOOD CONTROLLED AND HAS LORAZEPAM AT HOME
[2016-05-02] MEDS ORDERED: HYDROMORPHONE HC2 MG PO (09:42)
[2016-05-02] MEDS ORDERED: WARFARIN SODIUM5 MG PO (09:43)
[2016-05-02] MEDS ORDERED: XARELTO10 MG PO (09:46)
[2016-05-02] MEDS ORDERED: SPIRIVA18 MCG IN (09:47)
--- NOTE | 2016-05-02 09:53 | Provider's Discharge Care Plan ---
Problem, Goal, Plan Problem List 1. Nasopharyngeal mass Goals: Diagnostic testing (AWAITING BIOPSY REPORT) Instructions: Take meds as directed, TRY HYDROMORPHONE FOR PAIN CONTROL 2. Pulmonary emboli Goals: Prevent disease progress Instructions: Take meds as directed (XARELTO 2X/DAY OVER WEEKEND AN) 3. COPD (chronic obstructive pulmonary disease) Goals: Prevent disease progress Instructions: Follow up as needed (INHALERS PREVIOUSLY) 4. Anxiety Goals: Improved health/wellness Instructions: Reduce stress
[2016-05-02 11:29] VITALS: BP 130/84
--- NOTE | 2016-05-02 11:43 | DISCHARGE SUMMARY ---
ADMIT DATE: 05/01/2016 DISCHARGE DATE: 05/02/2016 ADMITTING DIAGNOSIS: 1. Pulmonary emboli DISCHARGE DIAGNOSES: 1. Pulmonary emboli 2. Nasopharyngeal cancer. 3. Chronic obstructive pulmonary disease. 4. Essential tremor. 5. Anxiety. BRIEF HISTORY: The patient is a female who was at the [facility] earlier in the day of discharge and had a biopsy done of a tumor in her posterior nasopharynx. After this was performed, she was on her way home. They had also done a CAT scan of her head, neck, and on the CAT scan noted that there were pulmonary emboli suspected in her chest. They therefore called her and asked her to return or to go the emergency department, which she did. She came to the [facility] Emergency Department where a D-dimer was elevated and a CAT scan with angiogram confirmed possible small peripheral pulmonary emboli. She was therefore admitted to the hospital for anticoagulation. HOSPITAL COURSE: The patient was admitted and put on Lovenox. The options for anticoagulation were discussed and she did not feel she wanted to continue getting herself shots at home and therefore elected to start warfarin. It was also suggested that she could return home if she were able to take Xarelto at pulmonary embolism doses, that is [address] Lopez was going to arrange for her to add samples of these while awaiting confirmation from her insurance company that she could affordably continue this at that dose for 3 weeks. If not, she will start her warfarin at home and have this checked on Thursday at the clinic while bridging with samples of Xarelto. She was asymptomatic in regard to pulmonary embolism. She does have a history of emphysema but was not more short of breath and had no chest pain nor palpitations. Vital signs have remained stable and she did not require supplemental oxygen. It was therefore felt that those emboli did not provide any imminent risk. There was no evidence of any source other than her hypercoagulability probably from cancer, although the biopsy for this is not available yet. Physical examination was unremarkable other than diminished breath sounds from COPD. She did have a nasal voice and obstruction if her nasopharynx from this tumor. There were no other acute findings. Laboratory results were all within normal range other than the D-dimer which was elevated. CAT scan results were as mentioned. DISPOSITION: To her home. DISCHARGE INSTRUCTIONS/MEDICATIONS: Medications as previous, but also with a prescription for hydromorphone for pain, 2 mg every 6 hours as needed. She is to take Xarelto 15 mg twice a day as provided with samples and will bridge with Coumadin 5 mg daily at home and have a protime checked on Thursday at the clinic in [place]. Her other medications include lorazepam 1 mg 3 times a day for anxiety, Spiriva 1 capsule daily, Symbicort 1 puff twice daily, oxycodone for pain as needed.
--- NOTE | 2016-05-02 14:53 | NUR ---
C/O HEADACHE 09/22 AND DILAUDID PO EFFECTIVE WITH NO S/S OF N/V. WENT OVER DC INSTRUCTIONS WITH PT AND DAUGHTER. EDUCATED PT ON COUMADIN THERAPY AND THE FOODS NOT TO EAT HIGH IN VIT K. GAVE LIST OF FOODS NOT TO EAT AND WHAT IS REQUIRED FOR COUMADIN THERAPY. BOTH DAUGHTER AND PT STATED UNDERSTANDING. IV SITE REMOVED IN RAC AND WRAPPED WITH PRESSURE DRESSING. ESCORTED OUT VIA WC TO PRIVATE CAR HOME.
== END 2016-05-02 14:30 | disposition home or self-care (01) ==
LOC: ED SRH 18:58 → TRANS SRH 21:37 → ACUTE2 SRH 22:20
PROVIDERS: ADMIT Emergency Medicine
DX: I26.99 Other pulmonary embolism without acute cor pulmonale (principal); J39.2 Other diseases of pharynx; J44.9 Chronic obstructive pulmonary disease, unspecified; G25.0 Essential tremor; F41.9 Anxiety disorder, unspecified; Z87.891 Personal history of nicotine dependence
CPT/HCPCS: 29230; 29249; 90074; 90100; 91556; 92720; 94001; 94060; 95059